=== PATIENT | female | born 1960 | race Caucasian/White ===

== ENCOUNTER 2021-01-18 00:51 | Inpatient (IN) | payer MEDICARE, MEDICAID ==
[~2021-01-18] VITALS: Ht 152.4 cm; Wt 61.1 kg
[~2021-01-18 00:51] MED LIST: ALBU18HF INH; ATOR-2 PO; CLOP75TA PO; FLUO20CA23 PO; FOLI1TAB32 PO; GABA600T7 PO; METO25TA91 PO; NIFE20CA PO; RIVA20TA PO; THIA100T27 PO; ZIPR40CA3 PO
--- NOTE | 2021-01-18 01:05 | NUR ---
PT BIB [facility] FROM [place], INITIALLY SEEN FOR CHEST PAIN AND SHORTNESS OF BREATH. PT IS ON 1 L NC OXYGEN, BASELINE FOR HISTORY OF COPD. PT CALM AND COOPERATIVE. PT ASSISTED TO COMMODE PRIOR TO GOING INTO STRETCHER TO URINATE. PT ON CR MONITOR, AND NO COMPLAINTS OF PAIN AT THIS TIME. EKG DONE, AND PT HAS A 20G PIV TO RIGHT FOREARM. TAPED AND SECURE. FLUSHES EASY, NO REDNESS OR SWELLING.
[2021-01-18] MEDS ORDERED: ENALAPRILAT 1.25 MG/ML, 2ML IVPush PRN (02:00)
[2021-01-18] MEDS ORDERED: ONDANSETRON 2MG/ML, 2ML IVPush PRN (02:00)
[2021-01-18] MEDS ORDERED: TRAZODONE 50MG TABLET PO PRN (02:00)
[2021-01-18] MEDS ORDERED: hydrALAzine 20 MG/ML, 1ML IVPush PRN (02:00)
--- NOTE | 2021-01-18 02:09 | NUR ---
POC DISCUSSED WITH DR. ZUÑIGA. TO CANCEL HEAPRIN DRIP PATIENT STARTED HER XARELTO THIS AM (TOOK 20MG THIS MORNING) LAB AT BEDSIDE
[2021-01-18] MEDS ORDERED: ONDANSETRON ODT 4 MG ONE (02:16)
[2021-01-18] MEDS ORDERED: MORPHINE SULFATE 4 MG/ML, 1ML ONE (02:17)
[2021-01-18] MEDS: ONDANSETRON ODT 4 MG PO PRN (02:21)
[2021-01-18] MEDS: morphine SULFATE 10 MG/ML, 1ML IVPush PRN ×2 (02:21→07:57)
--- NOTE | 2021-01-18 02:23 | NUR ---
Pt medicated for pain/nausea as per EMAR. Siderails up, call light within reach. Pt instructed not to get up without assistance. VSS.
[2021-01-18 02:38] LABS: TROPONIN I 0.016 ng/mL (0.000-0.045)
[2021-01-18] MEDS ORDERED: ALBUTEROL SULFATE 2.5 MG/3 ML NPPB PRN (03:00)
[2021-01-18 03:56] VITALS: BP 159/104
[2021-01-18 03:57] VITALS: BP 120/82
[2021-01-18] MEDS: ACETAMINOPHEN 325 MG TABLET PO PRN (04:38)
[2021-01-18] MEDS: HYDROcodone/APAP 5/325 TABLET PO PRN ×4 (04:38→22:57)
[2021-01-18] MEDS: METOPROLOL SUCCINATE 25 MG TAB.ER.24H PO SCH (06:26)
[2021-01-18 07:21] VITALS: BP 149/94
[2021-01-18] MEDS: SENNA/DOCUSATE TABLET PO SCH (08:00)
[2021-01-18] MEDS: RIVAROXABAN 15 MG TABLET PO SCH ×2 (08:01→16:40)
[2021-01-18] MEDS: ZIPRASIDONE 40MG CAPSULE PO SCH (08:01)
[2021-01-18] MEDS: GABAPENTIN 300 MG CAPSULE PO SCH ×3 (08:02→20:13)
[2021-01-18 08:33] LABS: TROPONIN I 0.024 ng/mL (0.000-0.045)
[2021-01-18 12:18] LABS: BASOPHILS % (AUTO) 1 % (0-1); EOSINOPHILS % (AUTO) 4 % (1-7); LYMPHOCYTES % (AUTO) 40 % (22-44); MEAN CORPUSCULAR HEMOGLOBIN 32.8 pg (27.0-34.8); MEAN CORPUSCULAR HGB CONC 33.4 g/dL (32.4-35.8); MEAN PLATELET VOLUME 7.3 fL (7.4-10.4); MONOCYTES % (AUTO) 7 % (2-9); NEUTROPHILS % (AUTO) 47 % (42-75); PLATELET COUNT 181 x10^3/uL (130-400); RED BLOOD COUNT 4.27 x10^6/uL (3.82-5.3); RED CELL DISTRIBUTION WIDTH 13.1 % (9.6-15.2)
[2021-01-18 12:24] LABS: ALANINE AMINOTRANSFERASE 26 U/L (12-78); ALBUMIN 3.2 g/dL (3.4-5.0); ANION GAP 3 mmol/L (5-15); CALCIUM 8.7 mg/dL (8.5-10.1); CHLORIDE 104 mmol/L (98-107); CREATININE 1.08 mg/dL (0.55-1.02)
[2021-01-18 12:26] LABS: ALKALINE PHOSPHATASE 112 U/L (45-117); BILIRUBIN,TOTAL 0.8 mg/dL (0.2-1.0); TOTAL PROTEIN 6.5 g/dL (6.4-8.2)
[2021-01-18 14:06] VITALS: BP 114/75
[2021-01-18] MEDS ORDERED: MAGNESIUM SULFATE PMX 2GM/50ML 50 ML IV ONE (16:00)
[2021-01-18] MEDS ORDERED: POTASSIUM CHLORIDE 40 MEQ in SODIUM CHLORIDE 0.9% 500 ML IV ONE (16:00)
[2021-01-18 16:26] LABS: TROPONIN I 0.018 ng/mL (0.000-0.045)
[2021-01-18] MEDS: LACTATED RINGERS 1,000 ML IV SCH (16:35)
[2021-01-18 19:36] VITALS: BP 100/69
[2021-01-18] MEDS: ATORVASTATIN 80 MG TABLET PO SCH (20:13)
[2021-01-19 01:58] VITALS: BP 108/66
[2021-01-19 05:15] VITALS: BP 136/85
[2021-01-19] MEDS: HYDROcodone/APAP 5/325 TABLET PO PRN (05:18)
[2021-01-19] MEDS: METOPROLOL SUCCINATE 25 MG TAB.ER.24H PO SCH (05:18)
[2021-01-19] MEDS: LACTATED RINGERS 1,000 ML IV SCH ×2 (05:19→18:36)
[2021-01-19 05:39] LABS: BASOPHILS % (AUTO) 1 % (0-1); EOSINOPHILS % (AUTO) 5 % (1-7); LYMPHOCYTES % (AUTO) 40 % (22-44); MEAN CORPUSCULAR HEMOGLOBIN 32.5 pg (27.0-34.8); MEAN CORPUSCULAR HGB CONC 32.8 g/dL (32.4-35.8); MEAN PLATELET VOLUME 7.9 fL (7.4-10.4); MONOCYTES % (AUTO) 8 % (2-9); NEUTROPHILS % (AUTO) 46 % (42-75); PLATELET COUNT 168 x10^3/uL (130-400); RED BLOOD COUNT 4.07 x10^6/uL (3.82-5.3); RED CELL DISTRIBUTION WIDTH 13.4 % (9.6-15.2)
[2021-01-19 06:32] LABS: ANION GAP 6 mmol/L (5-15); CALCIUM 8.4 mg/dL (8.5-10.1); CHLORIDE 111 mmol/L (98-107)
[2021-01-19 06:41] VITALS: BP 154/86
[2021-01-19] MEDS ORDERED: GABA300C PO (08:13)
[2021-01-19] MEDS: GABAPENTIN 300 MG CAPSULE PO SCH ×3 (09:23→20:02)
[2021-01-19] MEDS: RIVAROXABAN 15 MG TABLET PO SCH ×2 (09:23→16:51)
[2021-01-19] MEDS: SENNA/DOCUSATE TABLET PO SCH (09:23)
[2021-01-19] MEDS: ZIPRASIDONE 40MG CAPSULE PO SCH (09:26)
[2021-01-19] MEDS: ACETAMINOPHEN 325 MG TABLET PO PRN ×2 (09:29→20:01)
[2021-01-19 12:05] VITALS: BP 143/86
[2021-01-19 12:33] VITALS: BP 136/63
[2021-01-19] MEDS ORDERED: OXYcodone/APAP 10/325MG TABLET PO ONE (15:00)
[2021-01-19] MEDS: ONDANSETRON ODT 4 MG PO PRN (16:51)
[2021-01-19] MEDS ORDERED: OXYcodone/APAP 5/325MG TABLET PO PRN (18:30)
[2021-01-19] MEDS: PROMETHAZINE 25 MG/ML, 1ML IM PRN (18:57)
[2021-01-19 19:08] VITALS: BP 133/87
[2021-01-19] MEDS: ATORVASTATIN 80 MG TABLET PO SCH (20:01)
[2021-01-19 20:36] LABS: AMPHETAMINE SCREEN, URINE Negative (Negative); BARBITURATE SCREEN, URINE Negative (Negative); BENZODIAZEPINE SCREEN, URINE Positive (Negative); CANNABINOID SCREEN, URINE Positive (Negative); COCAINE SCREEN, URINE Negative (Negative); METHADONE SCREEN, URINE Negative (Negative); OPIATE SCREEN, URINE Positive (Negative)
[2021-01-20] MEDS: PROMETHAZINE 25 MG/ML, 1ML IM PRN (00:19)
[2021-01-20 00:46] VITALS: BP 147/92
[2021-01-20] MEDS: ACETAMINOPHEN 325 MG TABLET PO PRN ×2 (04:51→20:22)
[2021-01-20 05:15] VITALS: BP 148/87
[2021-01-20] MEDS: LACTATED RINGERS 1,000 ML IV SCH (05:19)
[2021-01-20] MEDS: METOPROLOL SUCCINATE 25 MG TAB.ER.24H PO SCH (05:19)
[2021-01-20 06:00] LABS: CHLORIDE 105 mmol/L (98-107)
[2021-01-20 06:04] LABS: BASOPHILS % (AUTO) 0 % (0-1); EOSINOPHILS % (AUTO) 1 % (1-7); LYMPHOCYTES % (AUTO) 24 % (22-44); MEAN CORPUSCULAR HEMOGLOBIN 32.8 pg (27.0-34.8); MEAN CORPUSCULAR HGB CONC 32.9 g/dL (32.4-35.8); MEAN PLATELET VOLUME 7.7 fL (7.4-10.4); MONOCYTES % (AUTO) 5 % (2-9); NEUTROPHILS % (AUTO) 70 % (42-75); PLATELET COUNT 133 x10^3/uL (130-400); RED BLOOD COUNT 4.24 x10^6/uL (3.82-5.3); RED CELL DISTRIBUTION WIDTH 12.9 % (9.6-15.2)
[2021-01-20 06:07] LABS: ALANINE AMINOTRANSFERASE 18 U/L (12-78); ALBUMIN 3.1 g/dL (3.4-5.0); ALKALINE PHOSPHATASE 114 U/L (45-117); ANION GAP 2 mmol/L (5-15); BILIRUBIN,TOTAL 0.7 mg/dL (0.2-1.0); CALCIUM 8.8 mg/dL (8.5-10.1); CREATININE 0.96 mg/dL (0.55-1.02); TOTAL PROTEIN 6.4 g/dL (6.4-8.2)
[2021-01-20 07:23] VITALS: BP 160/93
[2021-01-20] MEDS: GABAPENTIN 300 MG CAPSULE PO SCH ×3 (08:33→20:21)
[2021-01-20] MEDS: ZIPRASIDONE 40MG CAPSULE PO SCH (08:33)
[2021-01-20] MEDS: SENNA/DOCUSATE TABLET PO SCH ×2 (08:33→08:36)
[2021-01-20] MEDS: RIVAROXABAN 15 MG TABLET PO SCH ×2 (08:33→15:33)
[2021-01-20 11:20] VITALS: BP 163/97
[2021-01-20 15:03] VITALS: BP 148/103
[2021-01-20] MEDS: HYDROXYZINE PAMOATE 50MG CAP PO PRN (15:46)
[2021-01-20 19:06] VITALS: BP 164/102
[2021-01-20] MEDS: ATORVASTATIN 80 MG TABLET PO SCH (20:22)
[2021-01-21 00:07] VITALS: BP 188/145
[2021-01-21] MEDS: ACETAMINOPHEN 325 MG TABLET PO PRN ×2 (00:38→08:25)
[2021-01-21] MEDS: HYDROXYZINE PAMOATE 50MG CAP PO PRN (02:39)
[2021-01-21] MEDS ORDERED: OXYcodone 5 MG/5 ML ORAL.SOL UDC PO ONE (04:30)
[2021-01-21] MEDS: METOPROLOL SUCCINATE 25 MG TAB.ER.24H PO SCH (06:04)
[2021-01-21 06:31] VITALS: BP 155/102
[2021-01-21 06:52] LABS: BASOPHILS % (AUTO) 1 % (0-1); EOSINOPHILS % (AUTO) 1 % (1-7); LYMPHOCYTES % (AUTO) 30 % (22-44); MEAN CORPUSCULAR HEMOGLOBIN 33.1 pg (27.0-34.8); MEAN CORPUSCULAR HGB CONC 33.5 g/dL (32.4-35.8); MEAN PLATELET VOLUME 8.1 fL (7.4-10.4); MONOCYTES % (AUTO) 7 % (2-9); NEUTROPHILS % (AUTO) 61 % (42-75); PLATELET COUNT 160 x10^3/uL (130-400); RED BLOOD COUNT 4.64 x10^6/uL (3.82-5.3); RED CELL DISTRIBUTION WIDTH 12.8 % (9.6-15.2)
[2021-01-21 07:03] LABS: ANION GAP 8 mmol/L (5-15); CALCIUM 9.2 mg/dL (8.5-10.1); CHLORIDE 110 mmol/L (98-107); CREATININE 0.91 mg/dL (0.55-1.02)
[2021-01-21] MEDS: GABAPENTIN 300 MG CAPSULE PO SCH (08:25)
[2021-01-21] MEDS: RIVAROXABAN 15 MG TABLET PO SCH (08:25)
[2021-01-21] MEDS: SENNA/DOCUSATE TABLET PO SCH (08:29)
[2021-01-21] MEDS ORDERED: AMLODIPINE 5 MG TABLET PO SCH (09:00)
[2021-01-21] MEDS ORDERED: OLANZAPINE 5 MG TABLET PO SCH (09:00)
[2021-01-21] MEDS ORDERED: KETOROLAC 30 MG/1 ML IVPush PRN (09:00)
== END 2021-01-21 10:01 | disposition left against medical advice (07) | DRG 176 ==
LOC: ED 01:25 → INTOOBSV 01:44 → OBSVTOIN 01:44 → EDIP 01:44 → 5SO 03:45 → 3N 01-20 10:39
PROVIDERS: ADMIT Hospitalist; ATTEND Family Medicine
DX: I26.99 Other pulmonary embolism without acute cor pulmonale (principal); M48.54XA Collapsed vertebra, not elsewhere classified, thoracic region, initial encounter for fracture; F31.61 Bipolar disorder, current episode mixed, mild; D68.59 Other primary thrombophilia; F10.10 Alcohol abuse, uncomplicated; F12.90 Cannabis use, unspecified, uncomplicated; F15.10 Other stimulant abuse, uncomplicated; F17.210 Nicotine dependence, cigarettes, uncomplicated; F41.0 Panic disorder [episodic paroxysmal anxiety]; G89.29 Other chronic pain; I11.0 Hypertensive heart disease with heart failure; I50.812 Chronic right heart failure; R33.9 Retention of urine, unspecified; F19.10 Other psychoactive substance abuse, uncomplicated; J44.9 Chronic obstructive pulmonary disease, unspecified; Z79.01 Long term (current) use of anticoagulants; Z86.718 Personal history of other venous thrombosis and embolism; Z91.14 Patient's other noncompliance with medication regimen; Z53.29 Procedure and treatment not carried out because of patient's decision for other reasons; Z88.8 Allergy status to other drugs, medicaments and biological substances
CPT/HCPCS: 36415; 74176; 80048; 80053; 80307; 83735; 84100; 84484; 85025; 93005; 93308; 93321; 93325; 96365; 96375; 99285; G0378; J1885; J2405; J2550; J3480; Q0162; J0360; J2270; J3475; J7040; J7120